=== PATIENT | female | born 1985 | race Caucasian/White ===

== ENCOUNTER 2019-10-18 12:32 | Emergency (ER) | payer BC ==
[~2019-10-18] VITALS: Ht 162.6 cm; Wt 58.6 kg
[2019-10-18 12:58] VITALS: BP 134/75
[2019-10-18] MEDS ORDERED: DEXAMETHASONE 4 MG TABLET PO STA (13:14)
[2019-10-18] MEDS ORDERED: IPRATRPIUM/ALBUTEROL 0.5/2.5MG 3 ML NEBU. NEB ONE (13:15)
--- NOTE | 2019-10-18 13:28 | PHYS DOC ---
Past Medical History Past Medical History: Asthma, Seizure Past Surgical History: Tonsillectomy Alcohol Use: None Adult General Chief Complaint Chief Complaint: FEVER HPI HPI Patient is a 34 year old female who presents with headache, fever, body aches, cough, runny nose, loss of appetite, ear pain, shortness of breath that started yesterday. She states that the symptoms started gradually and some have been ongoing for more days then just yesterday. The patient has a history of asthma. Complete ROS were reviewed and found to be within normal limits, except as documented in the HPI Current Medications Current Medications Current Medications Medications (Trade) Dose Ordered Sig/Yaz Start Time Stop Time Status Last Admin Dose Admin Albuterol/ Ipratropium (Duoneb) 3 ml 1X ONCE 10/18/19 13:15 10/18/19 13:19 DC 10/18/19 13:39 3 ML Dexamethasone (Decadron) 10 mg 1X STAT 10/18/19 13:14 10/18/19 13:19 DC 10/18/19 13:53 10 MG Ibuprofen (Motrin) 400 mg 1X STAT 10/18/19 13:53 10/18/19 13:54 DC Allergies Allergies Allergies Coded Allergies Type Severity Reaction Last Updated Verified Cephalosporins Allergy Severe rash 10/18/19 Yes haloperidol Allergy Severe rash 10/18/19 Yes Physical Exam Physical Exam Constitutional: Well developed, well nourished, no acute distress, non-toxic appearance. [] HENT: Normocephalic, atraumatic, bilateral external ears normal, bilateral tympanic membranes are pearly salas, oropharynx moist, no oral exudates, nose turbinates are inflamed. Eyes: PERRLA, EOMI, conjunctiva normal, no discharge. [] Neck: Normal range of motion, no tenderness, supple, no stridor. [] Cardiovascular:Heart rate regular rhythm, no murmur [] Lungs & Thorax: Bilateral breath sounds have scattered wheezes throughout. Abdomen: Bowel sounds normal, soft, no tenderness, no masses, no pulsatile masses. [] Skin: Warm, dry, no erythema, no rash. [] Neurologic: Alert and oriented X 3, normal motor function, normal sensory function, no focal deficits noted. [] Psychologic: Affect normal, judgement normal, mood normal. [] Current Patient Data Vital Signs Vital Signs Date Time Temp Pulse Resp B/P (MAP) Pulse Ox O2 Delivery O2 Flow Rate FiO2 10/18/19 13:41 Room Air 10/18/19 12:58 98.5 110 18 134/75 (94) 100 98.5 EKG EKG [] Radiology/Procedures Radiology/Procedures [][facility] [address] [place] [address] IMAGING REPORT Signed PATIENT: SHAI MATOS AACCOUNT: [id number] : 1985 LOCATION: ER AGE: 34 SEX: F EXAM STATUS: REG ER ORD. PHYSICIAN: GODWIN SIDDIQUI APRN REASON: shortness of breath PROCEDURE: CHEST PA & LATERAL CHEST PA LATERAL History: Shortness of breath Comparison: None. Findings: No consolidation or pleural effusion. Normal heart size. No pneumothorax. Impression: 1. No acute cardiopulmonary process. Electronically signed by: Faustino Rios DO (10/18/2019 1:54 PM) [id number] DICTATED and SIGNED BY: FAUSTINO RIOS DO DATE: 10/18/19 1355 Course & Med Decision Making Course & Med Decision Making Pertinent Labs and Imaging studies reviewed. (See chart for details) The patient appears to have the Flu clinically. Discussed with patient the importance of drinking plenty of fluids. I also discussed the importance of rest. It was discussed with the patient that she is contagious and to stay away from others until it has been a week since the start of her symptoms. Discussed with the patient that she can take Zyrtec per label instructions for runny nose. Also discussed the proper control of fever by rotating Tylenol and Ibuprofen at home. Will give the patient Decadron in the ER for symptom control. Will also get Chest x-ray and give Breathing treatment. Dragon Disclaimer Dragon Disclaimer This electronic medical record was generated, in whole or in part, using a voice recognition dictation system. Departure Departure Impression: Primary Impression: Acute viral syndrome Disposition: 01 HOME, SELF-CARE Condition: STABLE Referrals: KARY KUHN DO (PCP) Patient Instructions: Viral Syndrome Additional Instructions: Thank you for visiting [facility]. We appreciate you trusting us with your care. If any additional problems come up don't hesitate to return to visit us. Please follow up with your primary care provider so they can plan additional care if needed and know about the problem that you had. If symptoms worsen come back to the Emergency Department. Any concerning symptoms that start such as chest pain, shortness of air, weakness or numbness on one side of the body, running high fevers or any other concerning symptoms return to the ER. Please drink plenty of fluids. If unable to keep fluids down please return to ER. Please get Tylenol and Ibuprofen over the counter. Give each medication every 6 hours as directed by the medication labels. In order to utilize the peak of the medications stagger the medications to where the child is getting one of the medications every 3 hours. For example if you give Ibuprofen at 3 PM, you then give Tylenol at 6 PM and Ibuprofen again at 9 PM, and then Tylenol at midnight. Please get Zyrtec over the counter and take per label instructions for GODWIN Nair APRN Oct 18, 2019 13:28
[2019-10-18] MEDS ORDERED: IBUPROFEN 400 MG TABLET. PO STA (13:53)
--- NOTE | 2019-10-18 13:57 | RAD ---
CHEST PA LATERAL History: Shortness of breath Comparison: None. Findings: No consolidation or pleural effusion. Normal heart size. No pneumothorax. Impression: 1. No acute cardiopulmonary process. Electronically signed by: Faustino Rios DO (10/18/2019 1:54 PM) [id number]
== END 2019-10-18 14:10 | disposition home or self-care (01) ==
LOC: ER 12:32
DX: B34.9 Viral infection, unspecified (principal); R51 Headache; R63.0 Anorexia; R09.89 Other specified symptoms and signs involving the circulatory and respiratory systems; R06.02 Shortness of breath; J45.909 Unspecified asthma, uncomplicated; Z90.89 Acquired absence of other organs; Z88.1 Allergy status to other antibiotic agents; Z88.8 Allergy status to other drugs, medicaments and biological substances
CPT/HCPCS: 71046; 99284; J7620; J8540